=== PATIENT | male | born 1955 | race Caucasian/White ===

== ENCOUNTER → 2022-11-04 | Outpatient (CLI) | payer MEDICARE | END | disposition home or self-care (01) | LOC: LAB 11:44 | PROVIDERS: ATTEND Internal Medicine Cardiovascular Disease | DX: E85.9 Amyloidosis, unspecified (principal) | CPT/HCPCS: 36415; 84165 ==

== ENCOUNTER → 2022-11-25 | Outpatient (CLI) | payer MEDICARE | END | disposition home or self-care (01) | LOC: LAB 08:56 | PROVIDERS: ATTEND Internal Medicine Cardiovascular Disease | DX: I10 Essential (primary) hypertension (principal) | CPT/HCPCS: 36415; 83883; 84165; 86334 ==

== ENCOUNTER → 2022-12-06 | Outpatient (CLI) | payer MEDICARE | END | disposition home or self-care (01) | LOC: SHCH 07:40 → EDUNIT# 08:00 | PROVIDERS: ATTEND Internal Medicine Cardiovascular Disease | DX: I34.0 Nonrheumatic mitral (valve) insufficiency (principal); E85.4 Organ-limited amyloidosis | CPT/HCPCS: 93306 ==

== ENCOUNTER → 2024-02-03 | Outpatient (CLI) | payer MEDICARE ==
[~2024-02-03] MED LIST: IOHEXOL 350 MG/ML 100ML INFUS..BTL IV ONE
== END | disposition home or self-care (01) ==
LOC: RAH 13:02
PROVIDERS: ATTEND Internal Medicine Cardiovascular Disease
DX: I25.10 Atherosclerotic heart disease of native coronary artery without angina pectoris (principal); I65.23 Occlusion and stenosis of bilateral carotid arteries; M47.815 Spondylosis without myelopathy or radiculopathy, thoracolumbar region
CPT/HCPCS: 75574; Q9967

== ENCOUNTER 2024-03-15 05:51 | Observation (INO) | payer MEDICARE ==
[2024-03-11 10:28] VITALS: BP 133/72; PULSE 56; RESP 18; TEMP 97
[2024-03-11 10:36] LABS: BASOPHILS # (AUTO) 0.07 K/uL (0.00-0.20); BASOPHILS % (AUTO) 1.3 % (0.0-5.0); EOSINOPHILS % (AUTO) 3.8 % (0.0-8.0); HEMATOCRIT 43.7 % (42-54); IMMATURE GRANULOCYTE ABSOLUTE 0.02 K/uL (0-1); LYMPHOCYTES # (AUTO) 1.2 K/uL (1.0-4.8); LYMPHOCYTES % (AUTO) 22.4 % (21.0-51.0); MEAN CORPUSCULAR HGB CONC 32.5 g/dL (32.0-36.0); MEAN CORPUSCULAR VOLUME 92.4 fL (79-99); MONOCYTES # (AUTO) 0.5 K/uL (0.1-1.0); MONOCYTES % (AUTO) 8.9 % (3.0-13.0); NEUTROPHILS # (AUTO) 3.4 K/uL (1.8-7.7); NEUTROPHILS % (AUTO) 63.2 % (40.0-77.0); PLATELET COUNT (AUTO) 232 K/uL (130-400); RED BLOOD CELL COUNT(AUTO) 4.73 MIL/uL (4.50-6.20); RED CELL DISTRIBUTION WIDTH 12.8 % (11.0-15.5); WHITE BLOOD COUNT (AUTO) 5.3 K/uL (4.8-10.8)
[2024-03-11 10:46] LABS: CREATININE 1.3 mg/dL (0.5-1.3)
[2024-03-11 10:47] LABS: APPEARANCE,URINE CLEAR (CLEAR); BILIRUBIN,URINE NEGATIVE (NEGATIVE); COLOR,URINE COLORLESS (YELLOW); GLUCOSE, URINE (UA) NEGATIVE (NEGATIVE); KETONES,URINE NEGATIVE (NEGATIVE); LEUKOCYTE ESTERASE ,URINE NEGATIVE Leu/uL (NEGATIVE); NITRATE,URINE NEGATIVE (NEGATIVE); OCCULT BLOOD,URINE NEGATIVE (NEGATIVE); PROTEIN,URINE NEGATIVE (NEGATIVE); UROBILINOGEN,URINE 0.2 mg/dL (0.2-1.0)
[2024-03-11 10:55] LABS: ADD UA MICROSCOPIC NO
[2024-03-11 10:55] LABS: INR 0.94 (0.85-1.15); PROTHROMBIN TIME 10.2 SEC (9.6-11.6)
[2024-03-11 10:56] LABS: PARTIAL THROMBOPLASTIN TIME 26.8 SEC (26.3-35.5)
--- NOTE | 2024-03-11 11:03 | HMCIMG ---
CHEST 1VW HISTORY: Preop COMPARISON: None FINDINGS: A frontal projection of the chest was obtained. No acute pulmonary infiltrates is seen. The heart is borderline enlarged. Poststernotomy changes are seen. No evidence of aortic calcification is seen. IMPRESSION: 1. No acute pulmonary infiltrate is seen.
[2024-03-11 11:04] LABS: B-TYPE NATRIURETIC PEPTIDE 42 pg/mL (0-100)
--- NOTE | 2024-03-12 19:45 | EKG ---
[facility] Test Date: 2024-03-11 Test Time: 10:20:13 Pat Name: SAM CASTELLANOS Department: [facility] Room: Gender: M Severity Of Illness Coordinator: [id number] : 1955 Requested By: MARIBEL OLIVA Order Number: [id number] Reading MD: Maribel Oliva Measurements Intervals [place] Rate: 47 P: 29 LA: 183 QRS: 69 QRSD: 102 T: 46 QT: 425 QTc: 376 Interpretive Statements Sinus bradycardia No previous ECG available for comparison Electronically Signed On 03-14-2024 15:00:44 CITY ALDERMAN by Maribel Oliva Please click the below link to view image of tracing.
[~2024-03-15] VITALS: Ht 188 cm; Wt 98.4 kg
[2024-03-15] VITALS (18 sets, daily range): BP systolic 104–167; BP diastolic 58–82; PULSE 47–68; RESP 13–18; TEMP 97.2–98.9; O2SAT 96
[~2024-03-15 05:51] MED LIST changes: +ASPI-1146 PO; -IOHEXOL 350 MG/ML 100ML INFUS..BTL IV ONE; +IRBE300T26 PO; +OMEP20CA12 PO; +TEST200V21 IM; +TRAZ-185 PO
[2024-03-15] MEDS: 0.9%NACL 1000ML 1,000 ML IV ONE (06:58)
[2024-03-15] MEDS ORDERED: IOHEXOL 350 MG/ML 100ML INFUS..BTL IV ONE ×3 (07:12→08:32)
[2024-03-15] MEDS ORDERED: LIDOCAINE HCL 400MG/20ML VIAL ONE (07:12)
[2024-03-15] MEDS ORDERED: HEParin-NS 1,000 UNIT/500 ML 1,000 ML IV ONE (07:13)
[2024-03-15] MEDS ORDERED: NITROGLYCERIN 50MG VIAL ONE (07:13)
[2024-03-15] MEDS ORDERED: FENTanyl CITRate PF 50 MCG/1 ML 2ML VIAL ONE (07:23)
[2024-03-15] MEDS ORDERED: MIDAZOLAM HCL 1 MG/ML 2ML VIAL ONE ×3 (07:25→08:41)
[2024-03-15] MEDS ORDERED: HEParin 10,000 UNIT/10ML (1,000 UNIT/ML) VIAL ONE (08:10)
[2024-03-15] MEDS ORDERED: morPHINE 4 MG SYG ONE (08:28)
[2024-03-15] MEDS ORDERED: cloPIDOgrel 300MG TAB ONE (09:05)
[2024-03-15] MEDS ORDERED: ASPIRIN 325MG EC TAB PO ONE (09:06)
[2024-03-15] MEDS: ondanSETRON 4MG INJ IVP SCH (09:30)
[2024-03-15] MEDS ORDERED: ondanSETRON 4MG INJ IVP PRN (09:30)
[2024-03-15] MEDS ORDERED: acetaMINOPHEN WITH coDEINE 1 TAB TAB PO PRN ×2 (09:30)
[2024-03-15] MEDS ORDERED: NITROGLYCERIN 50MG/D5W 250ML 1 BOT IV PRN (09:30)
[2024-03-15] MEDS ORDERED: TEMAZepam 30 MG CAP PO PRN (09:30)
--- NOTE | 2024-03-15 09:33 | PRN ---
Cath Procedure Report CATH PROCEDURE REPORT CARDIAC CATHETERIZATION REPORT Date of Service: Mar 15, 2024 Left heart catheterization and PCI report After informed consent the patient was prepped draped usual fashion. He received a total of 4 mg of Versed and 25 mcg of fentanyl administered in divided doses to achieve adequate level conscious sedation. He received 15 cc of 2% xylocaine in the right inguinal area. A six Burkinan sheath was introduced in the right femoral artery using modified Seldinger technique. A Harrison four left six Burkinan diagnostic catheter was advanced over guidewire to the aortic root. Wire was removed and catheter engaged into the left coronary system which was visualized multiple planes. The catheter was removed. A Harrison four right six Burkinan diagnostic catheter was advanced over guidewire to the aortic root. Wire was removed and catheter engaged into the [place] right coronary artery which was visualized multiple planes. Catheter was then manipulated to the origin of the saphenous graft that we believe went to a diagonal artery which was visualized. Then to the saphenous graft to the distal RCA which was visualized in multiple planes. The catheter was then manipulated to the origin of the LOERA graft to the LAD which was visualized in multiple planes. Findings: The left main coronary artery is free of obstruction. The LAD has a 70% proximal stenosis. There was a patent LOERA graft to the LAD which fills the diagonal artery in a retrograde fashion. The vein graft to the diagonal artery is occluded. The circumflex artery is free of obstruction gives rise to normal obtuse marginal branches. The right coronary artery is a right-dominant vessel. There was a previous stent in the proximal portion of the right coronary artery with a 70% in stent stenosis throughout the stent. In addition there was a 80% stenosis in the distal RCA. PDA is totally occluded. The saphenous graft to the distal RCA is atretic with multiple areas of 70-80% stenosis and diffuse atherosclerosis. It was felt that the graft was not amenable to revascularization. After discussion with the patient it was decided to undertake revascularization of the [place] circulation. The [place] right coronary artery proximal stent was dilated with a 3.0 by 18 mm balloon both proximally and distally. The distal RCA and was stented with a two point 5 x 18 mm drug-eluting stent which resulted in occlusion of the atretic graft. The midportion of the right coronary artery was then stented in overlapping fashion with the previous stents with a 2.5 by 12 mm drug-eluting stent. At this point flow was reestablished into the posterolateral branches. An acute marginal branch was pinched by the mid RCA stent however ANA flow was normal. The wire across the PDA and a decided to proceed balloon angioplasty of the proximal PDA as this was a small 1 mm diameter vessel. A 1.25 mm x 6 mm balloon was then dilated in the proximal portion of the PDA with re- establishment of flow into the PDA. Patient did have angina throughout the procedure and required additional morphine for symptom relief. He is pain-free at the end of the procedure. Summary: Successful balloon angioplasty of InStent restenosis of the [place] right coronary artery followed by stenting of the distal and mid RCA and balloon angioplasty of the chronically occluded PDA. With improved ANA three flow in the distal vessels. Atretic RCA graft is occluded after placement of the stents. Report dictated by MARIBEL Cruz MD, MD Mar 15, 2024 09:33
[2024-03-15] MEDS: LoSARTan 100 MG TABLET PO SCH (22:00)
[2024-03-15] MEDS: trAZOdone HCL 50 MG TAB PO SCH (22:05)
[2024-03-16 00:22] VITALS: BP 110/60; PULSE 62; RESP 18; TEMP 98.7
[2024-03-16 04:02] VITALS: BP 107/58; PULSE 58; RESP 18; TEMP 97.8
--- NOTE | 2024-03-16 06:41 | PN ---
[facility] Cardiology Progress Note CARDIOLOGY PROGRESS NOTE MARCH 16, 2024 PROBLEMS: 1. Angina 2. CAD status post remote aortocoronary bypass graft surgery with a LOERA graft to the LAD saphenous graft to the diagonal arteries and saphenous graft to the distal right coronary artery with patent LOERA graft to the LAD occluded saphenous graft to the diagonal artery and atretic graft to the [place] right coronary artery status post balloon angioplasty of the proximal stent in the [place] right coronary artery placement of two stents in the mid and distal right coronary artery and balloon angioplasty of the PDA 3. Dyslipidemia with history of statin intolerance 4. Hypertension This morning blood pressure running 110 systolic heart rate has been in the 50 and 60 range patient is afebrile. The patient continues on aspirin clopidogrel losartan was substituted for his irbesartan pantoprazole and trazodone. The patient is currently resting comfortably flat. He has no chest pain cath site showed no hematoma. Posterior tibial pulse on the right leg is 2+. Electrocardiogram shows sinus rhythm with a normal tracing. Patient can be discharged home today on aspirin and clopidogrel. The importance of dual antiplatelet therapy has been reinforced. The patient can follow up with me in one week. MARIBEL OLIVA MD Mar 16, 2024 06:41
--- NOTE | 2024-03-16 06:47 | EKG ---
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
[2024-03-16 06:55] LABS: BASOPHILS # (AUTO) 0.05 K/uL (0.00-0.20); BASOPHILS % (AUTO) 0.6 % (0.0-5.0); EOSINOPHILS # (AUTO) 0.25 K/uL (0.00-0.70); EOSINOPHILS % (AUTO) 3.2 % (0.0-8.0); IMMATURE GRANULOCYTE ABSOLUTE 0.02 K/uL (0-1); LYMPHOCYTES % (AUTO) 12.6 % (21.0-51.0); MEAN CORPUSCULAR HEMOGLOBIN 30.3 pg (27.0-33.0); MEAN CORPUSCULAR VOLUME 91.7 fL (79-99); MONOCYTES # (AUTO) 0.7 K/uL (0.1-1.0); MONOCYTES % (AUTO) 9.3 % (3.0-13.0); NEUTROPHILS # (AUTO) 5.7 K/uL (1.8-7.7); PLATELET COUNT (AUTO) 195 K/uL (130-400); RED BLOOD CELL COUNT(AUTO) 4.36 MIL/uL (4.50-6.20); RED CELL DISTRIBUTION WIDTH 12.7 % (11.0-15.5); WHITE BLOOD COUNT (AUTO) 7.7 K/uL (4.8-10.8)
[2024-03-16] MEDS ORDERED: CLOP75TA32 PO (07:01)
[2024-03-16 07:03] LABS: CREATININE 1.4 mg/dL (0.5-1.3); POTASSIUM 4.6 mmol/L (3.5-5.1)
[2024-03-16 07:41] VITALS: BP 126/60; PULSE 65; RESP 16; TEMP 98.1
[2024-03-16 07:49] VITALS: O2SAT 95
[2024-03-16] MEDS: ASPIRIN 81MG CHEW TAB PO SCH (08:14)
[2024-03-16] MEDS: cloPIDOgrel 75MG TAB PO SCH (08:14)
[2024-03-16] MEDS ORDERED: ASPIRIN 81MG CHEW TAB PO SCH ×2 (09:00)
[2024-03-16] MEDS: PANTOPrazole 40 MG TAB DR PO SCH (09:00)
[2024-03-16] MEDS ORDERED: cloPIDOgrel 75MG TAB PO SCH ×2 (09:00)
[2024-03-16] MEDS ORDERED: trAZOdone HCL 50 MG TAB PO SCH (21:00)
[2024-03-16] MEDS ORDERED: LoSARTan 100 MG TABLET PO SCH (21:00)
== END 2024-03-16 09:30 | disposition home or self-care (01) ==
LOC: DAH 05:51 → 2DH 10:23
PROVIDERS: ADMIT Internal Medicine Cardiovascular Disease; ATTEND Internal Medicine Cardiovascular Disease
DX: I25.119 Atherosclerotic heart disease of native coronary artery with unspecified angina pectoris (principal); I10 Essential (primary) hypertension; E78.5 Hyperlipidemia, unspecified; Z95.1 Presence of aortocoronary bypass graft; Z95.5 Presence of coronary angioplasty implant and graft; Z79.899 Other long term (current) drug therapy; Z98.890 Other specified postprocedural states
CPT/HCPCS: 80048 ×2; 83880; 85025 ×2; 85610; 85730; 81003; 36415 ×3; 71045; 93005 ×2; 93459; 92921; 85347 ×2; 84484; G0378 ×23; C1769; C1887; C1894; C1725 ×3; C1874 ×2; C1760; Q9965 ×3; J3010; J3490 ×2; J7030; J1644 ×2; J2250 ×3; J2270; Q9967 ×3; A4215; A4223 ×3; A4222; A4221; A4663; A4216; A4606; C9600; 92920; 99156; 99157

== ENCOUNTER 2024-07-21 06:56 | Day surgery (SDC) | payer MEDICARE ==
[2024-07-19 15:10] LABS: BASOPHILS # (AUTO) 0.04 K/uL (0.00-0.20); BASOPHILS % (AUTO) 0.7 % (0.0-5.0); EOSINOPHILS # (AUTO) 0.25 K/uL (0.00-0.70); EOSINOPHILS % (AUTO) 4.4 % (0.0-8.0); HEMATOCRIT 41.1 % (42-54); IMMATURE GRANULOCYTE ABSOLUTE 0.01 K/uL (0-1); LYMPHOCYTES # (AUTO) 1.1 K/uL (1.0-4.8); LYMPHOCYTES % (AUTO) 18.7 % (21.0-51.0); MEAN CORPUSCULAR HEMOGLOBIN 30.6 pg (27.0-33.0); MEAN CORPUSCULAR HGB CONC 32.6 g/dL (32.0-36.0); MEAN CORPUSCULAR VOLUME 93.8 fL (79-99); MONOCYTES # (AUTO) 0.5 K/uL (0.1-1.0); MONOCYTES % (AUTO) 9.3 % (3.0-13.0); NEUTROPHILS # (AUTO) 3.8 K/uL (1.8-7.7); NEUTROPHILS % (AUTO) 66.7 % (40.0-77.0); PLATELET COUNT (AUTO) 205 K/uL (130-400); RED BLOOD CELL COUNT(AUTO) 4.38 MIL/uL (4.50-6.20); RED CELL DISTRIBUTION WIDTH 12.3 % (11.0-15.5); WHITE BLOOD COUNT (AUTO) 5.7 K/uL (4.8-10.8)
[2024-07-19 15:13] LABS: APPEARANCE,URINE CLEAR (CLEAR); BILIRUBIN,URINE NEGATIVE (NEGATIVE); COLOR,URINE LIGHT-YELLOW (YELLOW); GLUCOSE, URINE (UA) NEGATIVE (NEGATIVE); KETONES,URINE 5 mg/dL (NEGATIVE); LEUKOCYTE ESTERASE ,URINE 75 Leu/uL (NEGATIVE); NITRATE,URINE NEGATIVE (NEGATIVE); OCCULT BLOOD,URINE NEGATIVE (NEGATIVE); PH,URINE 5.5 (5.0-8.0); PROTEIN,URINE 10 mg/dL (NEGATIVE); UROBILINOGEN,URINE 0.2 mg/dL (0.2-1.0)
[2024-07-19 15:18] LABS: PROTHROMBIN TIME 10.6 SEC (9.6-11.6)
[2024-07-19 15:19] LABS: PARTIAL THROMBOPLASTIN TIME 28.2 SEC (26.3-35.5)
[2024-07-19 15:20] LABS: CREATININE 1.2 mg/dL (0.5-1.3); POTASSIUM 4.5 mmol/L (3.5-5.1)
[2024-07-19 15:22] LABS: ADD UA MICROSCOPIC YES
[2024-07-19 15:29] LABS: MUCUS,URINE RARE LPF (None Seen); OTHER CASTS, URINE 2 /LPF (None Seen); SQUAMOUS EPITHELIAL CELL,UR RARE /HPF (0-2)
[2024-07-19 15:47] LABS: B-TYPE NATRIURETIC PEPTIDE 62 pg/mL (0-100)
[2024-07-19 15:50] VITALS: BP 159/75; PULSE 50; RESP 18; TEMP 98
--- NOTE | 2024-07-20 06:35 | EKG ---
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
--- NOTE | 2024-07-20 15:37 | NUR ---
report stevenson coronel rn reported ua to robert harkins np. ok to proceed
[~2024-07-21] VITALS: Ht 188 cm; Wt 96.8 kg
[2024-07-21] VITALS (10 sets, daily range): BP systolic 103–152; BP diastolic 56–75; PULSE 47–59; RESP 14–17; TEMP 97.1–97.7
[~2024-07-21 06:56] MED LIST changes: +CLOP75TA32 PO
[2024-07-21] MEDS ORDERED: LIDOCAINE HCL 400MG/20ML VIAL ONE (08:12)
[2024-07-21] MEDS ORDERED: HEParin-NS 1,000 UNIT/500 ML 1,000 ML IV ONE (08:12)
[2024-07-21] MEDS ORDERED: HEParin 10,000 UNIT/10ML (1,000 UNIT/ML) VIAL ONE (08:12)
--- NOTE | 2024-07-21 08:29 | HMCIMG ---
Exam Type: CHEST 1VW Clinical Information: PRE OP Comparison: None Findings: There is normal heart size and there is status post median sternotomy. The lungs are clear of infiltrates. Impression: Clear lungs.
[2024-07-21] MEDS ORDERED: IOHEXOL 350 MG/ML 100ML INFUS..BTL IV ONE (08:38)
[2024-07-21] MEDS ORDERED: MIDAZOLAM HCL 1 MG/ML 2ML VIAL ONE ×3 (08:51→09:03)
[2024-07-21] MEDS ORDERED: FENTanyl CITRate PF 50 MCG/1 ML 2ML VIAL ONE (08:51)
[2024-07-21] MEDS ORDERED: ATROPINE 1MG SYG IVP ONE (09:00)
[2024-07-21] MEDS ORDERED: IOHEXOL-350 50ML VIAL IV ONE (09:07)
[2024-07-21] MEDS: 0.9%NACL 1000ML 1,000 ML IV SCH (09:16)
--- NOTE | 2024-07-21 09:55 | PN ---
[facility] Cardiology Progress Note After informed consent the patient was prepped and draped in the usual fashion. He received a total of 5 mg of Versed and 100 mcg of fentanyl administered in divided doses to achieve adequate level of conscious sedation. Then received 20 cc of 1% xylocaine in the right inguinal area. A six [place]guillan sheath was introduced into the right femoral artery using modified Seldinger technique. A Harrison four left six [place]guillan diagnostic catheter was advanced over guidewire to the aortic root. Wire was removed and catheter engaged into the left main coronary artery left coronary system was visualized multiple planes the catheter was removed. Harrison four right six Anguillan diagnostic catheter was advanced over guidewire to the aortic root. Wire was removed and catheter engaged into the saphenous graft to the diagonal artery. Then into the saphenous graft to the right coronary artery which was visualized multiple planes. The catheter was then manipulated to the origin of the right coronary artery which was visualized in multiple planes. Attempts to manipulate the catheter to the origin of the LOERA graft were unsuccessful and the catheter was removed. A six Anguillan IMT catheter was then successfully manipulated to the origin of the internal mammary artery graft which was visualized multiple planes. Catheter was removed sheathogram performed and six [place]guillan Angio-Seal closure device applied. The entire procedure was well tolerated without complications. O2 saturations remained stable on a non rebreathing mask during the procedure. Findings: The left main coronary artery is free of obstruction. The left anterior descending artery is totally occluded after diagonal branch. There was a 70% stenosis in the 1st diagonal branch and the vein graft to the 1st diagonal branches occluded. There was a widely patent LOERA graft to the LAD. The circumflex artery is a nondominant vessel free of obstruction gives rise to normal obtuse marginal branches. The platinum right coronary artery has stents placed in the proximal mid and distal portion. The proximal portion demonstrat es early InStent restenosis after recent ballooning of the stent for InStent restenosis in March of 2024. The distal stent is completely occluded. The saphenous vein graft to the distal RCA is diffusely diseased and atretic. There was collateral filling of the PDA from the left coronary system. The posterolateral branch is not visualized. Summary: Early InStent restenosis after PTCA of the proximal RCA stent with total occlusion of the distal RCA stent. At this point the vessel is extensively stented and not likely to remain open. His vein graft is atretic and diffusely diseased and not amenable to revascularization. His PDA fills via collaterals and I would recommend a trial of medical management. Report dictated by MARIBEL Cruz MD, MD Jul 21, 2024 09:55
[2024-07-21] MEDS ORDERED: ISOS30TA92 PO (12:55)
[2024-07-21] MEDS ORDERED: METO-408 PO (12:56)
== END 2024-07-21 14:55 | disposition home or self-care (01) ==
LOC: DAH 06:56
PROVIDERS: ATTEND Internal Medicine Cardiovascular Disease
DX: I25.112 Atherosclerotic heart disease of native coronary artery with refractory angina pectoris (principal); I25.702 Atherosclerosis of coronary artery bypass graft(s), unspecified, with refractory angina pectoris; T82.855A Stenosis of coronary artery stent, initial encounter; G35 Multiple sclerosis; J44.9 Chronic obstructive pulmonary disease, unspecified; I65.23 Occlusion and stenosis of bilateral carotid arteries; I10 Essential (primary) hypertension; E78.5 Hyperlipidemia, unspecified; Z88.1 Allergy status to other antibiotic agents; Z85.038 Personal history of other malignant neoplasm of large intestine; Z90.89 Acquired absence of other organs; Z90.49 Acquired absence of other specified parts of digestive tract; Z98.890 Other specified postprocedural states; Z79.82 Long term (current) use of aspirin; Z79.899 Other long term (current) drug therapy; Y71.2 Prosthetic and other implants, materials and accessory cardiovascular devices associated with adverse incidents
CPT/HCPCS: 80048; 83880; 85025; 85610; 85730; 87086; 81001; 36415; 93005; 93459; 71045; C1894; C1760; J3010; J3490; J7030; J2250 ×3; J1644; Q9967; A4215; A4222; A4221; A4663; A4216; A4606; Q9965 ×2; A4223 ×3; 99156; 99157; J0461